=== PATIENT | male | born 1970 | race African-American/Black ===

== ENCOUNTER 2018-12-27 19:12 | Observation (INO) ==
[2018-12-27] MEDS ORDERED: ASPIRIN 325 MG TABLET PO STA (19:42)
[2018-12-27] MEDS ORDERED: ONDANSETRON 4 MG/2 ML VIAL IV STA (19:42)
[2018-12-27] MEDS ORDERED: ALBUTEROL/IPRATROPIUM 3 ML NEB RESP TX STA (19:42)
[2018-12-27] MEDS ORDERED: FUROSEMIDE 100 MG/10 ML VIAL IV STA (19:42)
[2018-12-27 19:56] LABS: Basophils % 0.5 % (0.0-0.8); Eosinophils # 0.2 10*3/uL (0.0-0.87); Eosinophils % 3.7 % (0.00-10.9); Hematocrit 38.3 VOL% (42.0-52.0); Hemoglobin 12.1 GM/DL (14.0-18.0); Lymphocytes # 1.2 10*3/uL (1.4-4.0); Lymphocytes % 28.3 % (21.2-54.2); Mean Corpuscular HGB Conc 31.6 GM/DL (32-36); Mean Corpuscular Hemoglobin 29 PG (27-34); Mean Corpuscular Volume 93.2 FL (87-102); Mean Platelet Volume 9.6 FL (9.6-12.0); Monocytes # 0.5 10*3/uL (0.11-0.8); Monocytes % 11.5 % (1.7-12.7); Neutrophils # 2.3 10*3/uL (1.4-7.4); Platelet Count 166 T/CUMM (130-400); Red Blood Count 4.11 MC/CUMM (3.8-5.5); White Blood Count 4.1 T/CUMM (4-12)
[2018-12-27 20:03] LABS: PT Patient Result 11.3 SECS
[2018-12-27 20:06] LABS: Albumin 3.2 G/DL (3.4-5.0); Bilirubin,Total 0.6 MG/DL (0.2-1.0); Calcium 6.8 MG/DL (8.5-10.1); Total Protein 6.2 G/DL (6.4-8.3)
[2018-12-27 20:09] LABS: Potassium 2.5 MMOL/L (3.5-5.1)
[2018-12-27] MEDS ORDERED: POTASSIUM CHLORIDE 20 MEQ TABLET PO STA (20:10)
[2018-12-27] MEDS ORDERED: POTASSIUM CHLORIDE 20 MEQ TABLET PO ONE ×2 (20:10→22:37)
[2018-12-27 21:50] LABS: Apearance,Urine CLEAR (Clear); Bilirubin,Urine Negative (Negative); Blood, Urine Negative (Negative); Glucose,Urine (UA) Negative (Negative); Hyaline Casts,Urine 5 /LPF (0-3); Ketones,Urine Negative (Negative); Mucus,Urine Occasional /LPF (Occasional); Nitrite,Urine Negative (Negative); Protein,Urine Negative; RBC,Urine <1 /HPF (0-4); Urine Color Yellow (Yellow); Urine Specific Gravity 1.009 (1.001-1.035); Urine Urobilinogen < 2.0 EU/DL (0.2-1.0); WBC,Urine 1 /HPF (0-6)
[2018-12-27] MEDS ORDERED: ACETAMINOPHEN 325 MG TABLET PO PRN (21:52)
[2018-12-27] MEDS ORDERED: ONDANSETRON 4 MG/2 ML VIAL IV PRN (21:52)
[2018-12-27 21:58] LABS: Barbiturates Screen,Urine Negative (Negative); Benzodiazepines Screen,Urine Negative (Negative); Cannabinoid Screen,Urine Positive (Negative); Opiate Screen,Urine Negative (Negative); Phencyclidine Screen,Urine Negative (Negative)
[2018-12-28] MEDS ORDERED: hydrALAZINE 20 MG/1 ML VIAL IV PRN (00:35)
[2018-12-28] MEDS: ENOXAPARIN 30 MG/0.3 ML SYRINGE SUBCUT SCH ×2 (00:50→22:12)
[2018-12-28] MEDS: SODIUM BICARB INJ 50 MEQ in SODIUM CHLORIDE 0.45% 1,000 ML IV SCH ×2 (01:29→15:29)
[2018-12-28 07:25] LABS: Alanine Aminotransferase 27 U/L (16-61); Albumin 3.7 G/DL (3.4-5.0); Alkaline Phosphatase 56 U/L (45-117); Aspartate Amino Transferase 18 U/L (0-37); Bilirubin,Total < 0.39 MG/DL (0.2-1.0); Blood Urea Nitrogen 30 MG/DL (7-18); Calcium 8.2 MG/DL (8.5-10.1); Glucose 88 MG/DL (74-106); Osmolality,Calculated 285.3 MOS/KG (273-304); Potassium 3.5 MMOL/L (3.5-5.1); Sodium 141 MMOL/L (136-145); Total Protein 7.1 G/DL (6.4-8.3)
[2018-12-28] MEDS: OXcarbazepine 300 MG TABLET PO SCH ×2 (08:25→21:16)
[2018-12-28] MEDS: ATORVASTATIN 40 MG TABLET PO SCH (08:25)
[2018-12-28] MEDS: PANTOPRAZOLE 40 MG TABLET PO SCH (08:26)
[2018-12-28] MEDS: POTASSIUM CHLORIDE 20 MEQ TABLET PO PRN ×2 (08:26→11:51)
[2018-12-28] MEDS: VENLAFAXINE XR 75 MG CAPSULE PO SCH (08:28)
[2018-12-28] MEDS: ASPIRIN EC 81 MG TABLET PO SCH (11:52)
[2018-12-29] MEDS: SODIUM BICARB INJ 50 MEQ in SODIUM CHLORIDE 0.45% 1,000 ML IV SCH (04:46)
[2018-12-29 08:09] LABS: Calcium 8.2 MG/DL (8.5-10.1); Osmolality,Calculated 277.5 MOS/KG (273-304); Potassium 3.7 MMOL/L (3.5-5.1)
[2018-12-29] MEDS: VENLAFAXINE XR 75 MG CAPSULE PO SCH (08:44)
[2018-12-29] MEDS: ATORVASTATIN 40 MG TABLET PO SCH (08:44)
[2018-12-29] MEDS: OXcarbazepine 300 MG TABLET PO SCH (08:44)
[2018-12-29] MEDS: PANTOPRAZOLE 40 MG TABLET PO SCH (08:44)
[2018-12-29] MEDS: POTASSIUM CHLORIDE 20 MEQ TABLET PO PRN (08:44)
[2018-12-29] MEDS: ASPIRIN EC 81 MG TABLET PO SCH (08:44)
[2018-12-29 15:31] VITALS: BP 111/64
== END 2018-12-29 17:50 | disposition home or self-care (01) ==
LOC: EDUNIT# → EDBD → N.ED 19:12 → N.EDINP 19:12 → N.4E 12-28 00:29
PROVIDERS: ADMIT Internal Medicine; ATTEND Internal Medicine